=== PATIENT | female | born 1960 | race Caucasian/White ===

== ENCOUNTER → 2017-03-29 | Outpatient (CLI) | payer OTHER ==
[~2017-03-29] MED LIST: ACID CONTROL150 MG PO; ALENDRONATE SOD70 MG PO; ALLEGRA PO; ALLERGY RELIEF10 M1 PO; ANTI-DIARRHEAL2 M1 PO; CEFEPIME 22 GM/100 M IV; CEPHALEXIN500 M1 PO; CERTAGEN PO; CLARITIN10 MG PO; CLEOCIN PO; CLEOCIN150 MG PO; DISCONTINUED MED; DISCONTINUED MED PO; ESTROVAN; FLEXERIL10 MG PO; GLUCOPHAGE XR500 MG PO; HYDROCHLOROTH12.5 M1 PO; HYDROCHLOROTHIA25 MG PO; HYDROCODON-ACE1 EAC9 PO; HYDROCODONE BIT1 TAB PO; HYDROCODONE-IB1 EAC1 PO; IBUPROFEN600 MG PO; KEFLEX PO; LEVAQUIN PO; LISINOPRIL10 MG PO; LOVAZA1 G PO; MACROBID100 MG DOB; METFORMIN HCL500 M1 PO; MUCINEX DM1 TAB.SR . PO; MUCINEX OTC PRN; NORVASC PO; PHENERGAN25 MG PO; POTASSIUM CHLO10 MEQ PO; PRAVASTATIN SOD20 MG PO; RANITIDINE HCL300 M1 PO; RANITIDINE HCL300 MG PO; SERTRALINE HCL100 MG PO; SERTRALINE HCL50 MG PO; SINGULAIR PO; VANCOMYCIN HCL1 GM IV; VICODIN 5/1 TAB 5/50 PO; VITAMIN D2000 UNI1 PO; WELLBUTRIN PO; XARELTO10 MG PO
--- NOTE | ~2017-03-29 | MR59 ---
[facility] A Service of [facility] & [facility] RADIOLOGY TEXT RESULTS PATIENT: RADHA ROPER LOCATION: [facility] : 56 UNIT #: [id number] AGE: [address]: MANUELA SPAULDING PA-C SEX: F ORDER DR: [id number] [address] [address] [id number] O MR#: [id number] Acc #: [id number] NAME: RADHA ROPER. : 1960 SEX: F STUDY DATE/TIME: 03/29/2017 13:15 UNIT: [facility] ROOM: STUDY DESCRIPTION: MR Foot WWo Contrast Rt Attending Physician: Manuela Spaulding Pa-C Referring Physician: Manuela Spaulding Pa-C Ordering Physician: Physician Non-Staff Primary Care Physician: Manuela Preciado M.D. MRI CENTER REPORT This report is preliminary unless electronic signature is present. EXAM MRI of the right foot with and without contrast. HISTORY 56-year-old female with a chronic heel ulcer with persistent drainage from ulcer. COMPARISON MRI of the right foot 04/10/2014, right foot films 03/22/2017. FINDINGS Multiplanar, multiecho imaging was performed of the right foot to include sagittal and coronal T1-weighted images following IV gadolinium. Examination demonstrates deformity of the calcaneus, may represent the sequela of previous debridement. There is diffuse marrow edema within the plantar and posterior aspect of the calcaneus extending to the calcaneal body. This enhances postcontrast and is consistent with underlying osteomyelitis. There is marrow edema along the dome of the talus and within the body of the talus and a small amount of edema within the adjacent tibial plafond. There is a small amount of ankle joint fluid. Findings are nonspecific, could be related to developing arthrosis though septic arthritis not excluded. This represents a new finding when compared to the patient's MRI from March 2014. Along the plantar aspect of the heel and hindfoot and extending into the medial soft tissues, there is a large complex air and fluid collection which shows peripheral enhancement postcontrast. This is compatible with a large somewhat multiloculated abscess. This measures 7.1 x 2.7 cm in transverse dimensions and about 7.4 cm in length. This is in communication to the skin through a penetrating ulcer along the plantar aspect of the heel pad measuring about 1.5 x 2.1 cm. Artifact is seen in the forefoot from instrumentation. Normal alignment of the midfoot joints. Diffuse fatty atrophy of the intrinsic foot musculature. [facility] A Service of [facility] RADIOLOGY TEXT RESULTS PATIENT: RADHA ROPER LOCATION: [facility] : 56 UNIT #: [id number] AGE: [address]: MANUELA SPAULDING PA-C SEX: F ORDER DR: IMPRESSION 1. Large air and fluid collection along the plantar aspect of the hindfoot, primarily within the heel pad but also extending into the medial and to a lesser extent lateral soft tissues. This measures up to 7.4 cm and is compatible with a large somewhat multiloculated abscess containing some air pockets. 2. Diffuse marrow edema within the calcaneus with enhancement postcontrast and may indicate active osteomyelitis. 3. Interval development of extensive marrow edema within the head of the talus and talar body and to a lesser extent within the tibial plafond, as well as a small amount of ankle joint fluid. This may be on the basis of arthrosis or altered biomechanical stress. Septic arthritis is considered less likely given the minimal enhancement postcontrast but underlying septic arthritis not entirely excluded. Dictated by... Dutch Lozano M.D. THIS IS AN ELECTRONICALLY VERIFIED REPORT Dutch Lozano M.D. at 03/30/2017 5:07 PM MERVIN/roscoe TD: 03/30/2017 10:04 JOB #: [id number] MRI CENTER REPORT Page 1 of 1
[2017-03-29 15:00] LABS: POC - CREATININE 2.09 mg/dL (0.44-1.03)
== END | disposition home or self-care (01) ==
LOC: SMRI 03-26 10:15
PROVIDERS: Physician Assistant
DX: L97.519 Non-pressure chronic ulcer of other part of right foot with unspecified severity (principal); L97.419 Non-pressure chronic ulcer of right heel and midfoot with unspecified severity
CPT/HCPCS: 73720; 82565; A9579